=== PATIENT | male | born 1990 | race Two or more races ===

== ENCOUNTER 2022-02-25 09:23 | Emergency (ER) | payer SELFPAY ==
[~2022-02-25] VITALS: Ht 177.8 cm; Wt 88.0 kg
[2022-02-25 09:38] VITALS: BP 150/91
--- NOTE | 2022-02-25 11:05 | RAD ---
XR ABDOMEN COMP ACUTE History: Reason: LLQ pain, distention, concern for constipation / Spl. Instructions: / History: Technique: Upright and supine views the abdomen. Comparison: None. Findings: Imaged lung bases are unremarkable. Mild small bowel gas. Air and stool throughout the colon. Moderat e proximal colonic stool burden. No consolidation or pleural effusion. No pneumothorax. Normal heart size. Impression: 1. Nonobstructed bowel gas pattern. Electronically signed by: Saul Zamarripa DO (02/25/2022 11:02 AM) [id number]
[2022-02-25] MEDS ORDERED: HYOS0.1265 SL (11:35)
[2022-02-25] MEDS ORDERED: SENN-121 PO (11:35)
[2022-02-25] MEDS ORDERED: POLY119P4 PO (11:35)
--- NOTE | 2022-02-25 11:35 | PHYS DOC ---
Past Medical History Past Medical History: No Pertinent History Past Surgical History: No Surgical History General Adult EDM: Chief Complaint: CONSTIPATION HPI: HPI: Patient is a 31 year old M who presents with abd pain onset yesterday. Pt reports LLQ pain since last night. He states this is the second time this month he has had pain like this. Pt has been constipated and has not had a normal BM in quite some time. He denies fever and n/v. No other complaints at this time. Review of Systems: Review of Systems: Constitutional: Denies fever or chills Eyes: Denies redness or eye pain HENT: Denies nasal congestion or sore throat Respiratory: Denies cough or shortness of breath Cardiovascular: Denies chest pain or palpitations GI: Denies nausea or vomiting; Reports abd pain and constipation : Denies dysuria or hematuria Musculoskeletal: Denies back pain or joint pain Integument: Denies rash or skin lesions Neurologic: Denies headache, focal weakness or sensory changes Complete systems were reviewed and found to be within normal limits, except as documented in this note. Heart Score: C/O Chest Pain: N/A Allergies: Allergies: Allergies Coded Allergies Type Severity Reaction Last Updated Verified No Known Drug Allergies 02/25/22 No Physical Exam: PE: Constitutional: Well developed, well nourished, no acute distress, non-toxic appearance HENT: Normocephalic, atraumatic Eyes: PERRL, EOMI, conjunctiva normal, no discharge Neck: Normal range of motion, no tenderness, supple Lungs & Thorax: No respiratory distress, equal chest rise and fall Abdomen: Soft, LLQ TTP Skin: Warm, dry, no erythema, no rash Back: No tenderness, no CVA tenderness Extremities: No tenderness, ROM intact, no edema Neurologic: Alert and oriented X 3, normal motor function, normal sensory function, no focal deficits noted Psychologic: Affect normal, judgment normal Current Patient Data: Vital Signs: Vital Signs Date Time Temp Pulse Resp B/P (MAP) Pulse Ox O2 Delivery O2 Flow Rate FiO2 02/25/22 09:38 99.1 91 18 150/91 (110) 97 Room Air 99.1 EKG: EKG: [] Radiology/Procedures: Radiology/Procedures: PROCEDURE: ACUTE ABDOMEN SERIES XR ABDOMEN COMP ACUTE History: Reason: LLQ pain, distention, concern for constipation / Spl. Instructions: / History: Technique: Upright and supine views the abdomen. Comparison: None. Findings: Imaged lung bases are unremarkable. Mild small bowel gas. Air and stool throughout the colon. Moderate proximal colonic stool burden. No consolidation or pleural effusion. No pneumothorax. Normal heart size. Impression: 1. Nonobstructed bowel gas pattern. Electronically signed by: Saul Zamarripa DO (02/25/2022 11:02 AM) [id number] Course & Med Decision Making: Course & Med Decision Making Pt is a 31 yo M who presents with abd pain Concerns for constipation KUB ordered and shows moderate stool in colon Pertinent Imaging studies reviewed. (See chart for details) Patient stable for discharge with outpatient follow-up with PCP. Discussed findings and plan with patient, who acknowledges understanding and agreement. David Disclaimer: David Disclaimer: This electronic medical record was generated, in whole or in part, using a voice recognition dictation system. Departure Departure Impression: Primary Impression: Constipation Qualified Codes: K59.00 - Constipation, unspecified Disposition: HOME / SELF CARE / HOMELESS Condition: STABLE Referrals: NO PCP (PCP) Patient Instructions: Constipation, Adult, [id number] Additional Instructions: Increase fluid hydration. Scripts Polyethylene Glycol 3350 (MIRALAX) 119 Gm Powder 17 GM PO DAILY for constipation, #255 GM 0 Refills dissolve in water Prov: MINERVA GRIJALVA DO 02/25/22 Sennosides/Docusate Sodium (Colace 2-in-1 Tablet) 1 Each Tablet 1 TAB PO QHS, #30 TAB 0 Refills Prov: MINERVA GRIJALVA DO 02/25/22 Hyoscyamine Sulfate (LEVSIN-SL) 0.125 Mg Tab.subl 0.125 MG SL Q4-6HRS PRN for PAIN, #20 TAB Prov: MINERVA GRIJALVA DO 02/25/22 MINERVA GRIJALVA DO Feb 25, 2022 11:35
== END 2022-02-25 11:45 | disposition home or self-care (01) ==
LOC: ER 09:23
DX: K59.00 Constipation, unspecified (principal)
CPT/HCPCS: 74022; 99283